=== PATIENT | female | born 1955 | race Caucasian/White ===

== ENCOUNTER → 2016-09-11 | Outpatient (CLI) | payer MEDICARE, OTHER | LOC: CT 09-10 10:30 | DX: R42 Dizziness and giddiness (principal); R55 Syncope and collapse; I65.23 Occlusion and stenosis of bilateral carotid arteries; I77.1 Stricture of artery | CPT/HCPCS: 70470; 93880; J7050; Q9966 ==

== ENCOUNTER → 2016-10-06 | Outpatient (CLI) | payer MEDICARE, OTHER | LOC: HEART 5 08:55 | DX: R07.9 Chest pain, unspecified (principal); R06.02 Shortness of breath | CPT/HCPCS: 78452; 93306; A9502; J2785 ==

== ENCOUNTER → 2020-08-31 | Outpatient (CLI) | payer MEDICARE, OTHER | LOC: KOH-I 16:05 | DX: R31.9 Hematuria, unspecified (principal) | CPT/HCPCS: 74176 ==

== ENCOUNTER 2021-05-09 23:09 | Emergency (ER) | payer MEDICARE, OTHER ==
[2021-05-09 23:38] LABS: HEMOGLOBIN 15.7 gm/dl (12.3-15.3); RED BLOOD COUNT 4.72 M/UL (4.00-5.10); WHITE BLOOD COUNT 9.4 K/UL (4.5-11.0)
[2021-05-10 00:09] LABS: BUN/CREATININE RATIO 18 (0-10)
== END 2021-05-10 03:02 | disposition home or self-care (01) ==
LOC: ER1 23:09
PROVIDERS: Physician Assistant
DX: R07.2 Precordial pain (principal); E78.5 Hyperlipidemia, unspecified; I10 Essential (primary) hypertension; J44.9 Chronic obstructive pulmonary disease, unspecified; Z90.49 Acquired absence of other specified parts of digestive tract; Z88.2 Allergy status to sulfonamides
CPT/HCPCS: 71045; 80053; 82550; 82553; 83690; 83874; 84484; 85025; 93005; 99285

== ENCOUNTER 2021-05-30 14:42 | Emergency (ER) | payer MEDICARE, OTHER | END 2021-05-30 15:00 | disposition left against medical advice (07) | LOC: ER1 14:42 | DX: R31.9 Hematuria, unspecified (principal); R10.9 Unspecified abdominal pain; R10.817 Generalized abdominal tenderness; F17.200 Nicotine dependence, unspecified, uncomplicated; J44.9 Chronic obstructive pulmonary disease, unspecified; Z88.2 Allergy status to sulfonamides; I51.9 Heart disease, unspecified | CPT/HCPCS: 81001; 99281 ==

== ENCOUNTER 2021-05-31 17:05 | Emergency (ER) | payer MEDICARE, OTHER ==
[2021-05-31 17:45] LABS: HEMOGLOBIN 16.6 gm/dl (12.3-15.3); RED BLOOD COUNT 4.97 M/UL (4.00-5.10); WHITE BLOOD COUNT 9.4 K/UL (4.5-11.0)
[2021-05-31 18:07] LABS: BUN/CREATININE RATIO 18 (0-10)
== END 2021-05-31 17:21 | disposition left against medical advice (07) ==
LOC: ER1 17:05
PROVIDERS: Physician Assistant
DX: R10.9 Unspecified abdominal pain (principal); R10.812 Left upper quadrant abdominal tenderness; R10.814 Left lower quadrant abdominal tenderness; J44.9 Chronic obstructive pulmonary disease, unspecified; I10 Essential (primary) hypertension; F17.200 Nicotine dependence, unspecified, uncomplicated; Z88.2 Allergy status to sulfonamides
CPT/HCPCS: 80053; 81001; 82150; 82550; 82553; 83690; 83874; 84484; 85025; 93005; 99284

== ENCOUNTER 2022-03-12 14:05 | Observation (INO) | payer MEDICARE, OTHER ==
[~2022-03-12] VITALS: Ht 162.6 cm; Wt 84.8 kg
[2022-03-12 14:27] LABS: RED BLOOD COUNT 4.96 M/UL (4.00-5.10); WHITE BLOOD COUNT 7.2 K/UL (4.5-11.0)
[2022-03-12 14:57] LABS: BUN/CREATININE RATIO 24 (0-10)
[2022-03-13 02:50] LABS: HEMOGLOBIN 14.5 gm/dl (12.3-15.3); WHITE BLOOD COUNT 8.2 K/UL (4.5-11.0)
[2022-03-13 02:51] LABS: RED BLOOD COUNT 4.45 M/UL (4.00-5.10)
--- NOTE | 2022-03-13 12:12 | NUR ---
PATIENT LEAVING THE FLOOR TO SIT OUTSIDE. ADVISED PATIENT SHE IS NOT TO LEAVE THE FLOOR WITH THE TELE MONITOR. PATIENT STATED SHE NEEDED FRESH AIR. ADVISED PATIENT RISKS VS BENEFITS.
[2022-03-13] MEDS ORDERED: PROAIR HFA8.5 GM INH (14:50)
[2022-03-13] MEDS ORDERED: LEVOTHYROXINE88 MCG PO (14:50)
[2022-03-13] MEDS ORDERED: VITAMIN B-121000 MCG PO (14:51)
[2022-03-13] MEDS ORDERED: VITAMIN D350 MC3 PO (14:51)
[2022-03-13] MEDS ORDERED: BREZTRI AEROS10.7 GM INH (14:51)
[2022-03-13] MEDS ORDERED: ESCITALOPRAM OX10 MG PO (14:52)
[2022-03-13] MEDS ORDERED: HYDROCHLOROTHIA25 MG PO (14:52)
[2022-03-13] MEDS ORDERED: IPRAT-ALBUT 0.5-3 ML INH (14:53)
[2022-03-13] MEDS ORDERED: METOPROLOL SUCC50 MG PO (14:53)
[2022-03-13] MEDS ORDERED: LORATADINE10 MG PO (14:53)
[2022-03-13] MEDS ORDERED: TRAZODONE HCL50 MG PO (14:54)
[2022-03-13] MEDS ORDERED: ZOCOR40 MG PO (14:54)
[2022-03-13] MEDS ORDERED: PROTONIX40 MG PO (14:54)
[2022-03-14] MEDS ORDERED: K-TAB ER20 MEQ PO (11:11)
[2022-03-14] MEDS ORDERED: NORVASC10 MG PO (11:11)
[2022-03-14] MEDS ORDERED: ASPIRIN EC81 MG PO (11:11)
[2022-03-14] MEDS ORDERED: OMNICEF 300 MG300 MG PO (11:11)
[2022-03-14] MEDS ORDERED: NITROSTAT0.3 MG SL (11:35)
[2022-03-14] MEDS ORDERED: ISOSORBIDE MONO30 MG PO (11:35)
[2022-03-14] MEDS ORDERED: PROTONIX 40 MG40 M1 PO (11:35)
[2022-03-14] MEDS ORDERED: HYDRALAZINE HCL25 MG PO (11:39)
== END 2022-03-14 12:41 | disposition home or self-care (01) ==
LOC: ER1 14:05 → CDU 19:14 → MED SURG 4 19:14
PROVIDERS: Emergency Medicine; Physician Assistant; ADMIT Internal Medicine
DX: I25.110 Atherosclerotic heart disease of native coronary artery with unstable angina pectoris (principal); I16.0 Hypertensive urgency; E87.6 Hypokalemia; I10 Essential (primary) hypertension; R79.89 Other specified abnormal findings of blood chemistry; R73.03 Prediabetes; E03.9 Hypothyroidism, unspecified; J44.9 Chronic obstructive pulmonary disease, unspecified; K21.9 Gastro-esophageal reflux disease without esophagitis; K22.70 Barrett's esophagus without dysplasia; F17.210 Nicotine dependence, cigarettes, uncomplicated; E78.5 Hyperlipidemia, unspecified; K76.0 Fatty (change of) liver, not elsewhere classified; Z95.5 Presence of coronary angioplasty implant and graft; Z88.2 Allergy status to sulfonamides; Z79.890 Hormone replacement therapy; Z79.899 Other long term (current) drug therapy; Z87.448 Personal history of other diseases of urinary system; Z87.09 Personal history of other diseases of the respiratory system
CPT/HCPCS: ECHO; 36415; 71045; 78452; 80048; 80053; 81001; 82550; 82553; 83735; 84132; 84484; 85025; 85379; 87086; 93005; 93017; 93306; 93970; 96372; 96374; 99285; A9502; G0378; J0696; J1650; J2785; Q9967